=== PATIENT | female | born 1995 | race African-American/Black ===

== ENCOUNTER 2017-07-06 16:02 | Emergency (ER) | payer SELFPAY ==
[~2017-07-06] VITALS: Ht 175.3 cm; Wt 84.0 kg
[2017-07-06] MEDS ORDERED: IBUPROFEN 600MG TABLET PO ONE (21:15)
[2017-07-06 21:24] VITALS: BP 113/61
== END 2017-07-06 23:20 | disposition home or self-care (01) ==
LOC: ER 19:36
DX: M54.2 Cervicalgia (principal); M54.5 Low back pain; Y92.410 Unspecified street and highway as the place of occurrence of the external cause; Y93.9 Activity, unspecified; V49.9XXA Car occupant (driver) (passenger) injured in unspecified traffic accident, initial encounter
CPT/HCPCS: 70490; 72100; 81025; 99284

== ENCOUNTER 2017-12-07 16:14 | Emergency (ER) | payer MEDICAID ==
[~2017-12-07] VITALS: Ht 172.7 cm; Wt 85.0 kg
[2017-12-07 16:41] VITALS: BP 114/67
== END 2017-12-07 20:00 | disposition left against medical advice (07) ==
LOC: ER 16:47
DX: Z53.21 Procedure and treatment not carried out due to patient leaving prior to being seen by health care provider (principal)